=== PATIENT | male | born 1965 | race Caucasian/White ===

== ENCOUNTER 2016-05-27 09:48 | Inpatient (IN) | payer OTHER ==
[2016-05-28 05:09] LABS: HCT 32.9 % (42.0-52.0); HGB 10.3 g/dl (13.2-18.0); MCH 27.2 pg (25.0-31.0); MCHC 31.3 g/dL (32.0-36.0); MPV 11.1 fL (6.0-9.5); RBC 3.78 M/uL (4.70-6.00); RDW 13.3 % (11.5-14.0); WBC 8.9 K/uL (4.0-10.5)
[2016-05-28 05:25] LABS: CREATININE 1.1 mg/dL (0.7-1.2); POTASSIUM 4.4 mmol/L (3.5-5.1)
--- NOTE | 2016-05-28 15:51 | NUR ---
PT HAS BEEN EDUCATED ON GETTING UP AND DISCONNECTING HIMSELF FROM IV FLUIDS PT CONTINUES TO DO SO AFTER EDUCATED ON RISKS AND BENEFITS ON NONCOMPLIANCE
[2016-05-29 04:02] LABS: HCT 32.7 % (42.0-52.0); HGB 10.3 g/dl (13.2-18.0); MCH 27.2 pg (25.0-31.0); MCHC 31.5 g/dL (32.0-36.0); MCV 86.5 fL (78.0-100.0); MPV 10.5 fL (6.0-9.5); RBC 3.78 M/uL (4.70-6.00); RDW 13.5 % (11.5-14.0); WBC 11.3 K/uL (4.0-10.5)
[2016-05-29 04:28] LABS: POTASSIUM 4.1 mmol/L (3.5-5.1)
[2016-05-30 04:53] LABS: HCT 32.1 % (42.0-52.0); HGB 9.9 g/dl (13.2-18.0); MCH 26.6 pg (25.0-31.0); MCHC 30.8 g/dL (32.0-36.0); MCV 86.3 fL (78.0-100.0); MPV 10.6 fL (6.0-9.5); RBC 3.72 M/uL (4.70-6.00); RDW 13.5 % (11.5-14.0); WBC 11.3 K/uL (4.0-10.5)
[2016-05-30 08:56] LABS: TROPONIN T < 0.010 ng/mL
[2016-05-30 08:59] LABS: BILIRUBIN - TOTAL 0.4 mg/dL (0.1-1.0); CREATININE 1.1 mg/dL (0.7-1.2); GLOBULIN (CALCULATION) 2.2 g/dL (2.2-4.2); PHOSPHORUS 1.9 mg/dL (2.7-4.5); POTASSIUM 4.4 mmol/L (3.5-5.1); TOTAL PROTEIN 6.2 g/dL (6.4-8.3)
[2016-05-30 09:05] LABS: CKMB 6.59 ng/mL (0.97-4.94)
[2016-05-31 04:55] LABS: HCT 29.6 % (42.0-52.0); HGB 9.4 g/dl (13.2-18.0); MCH 27.4 pg (25.0-31.0); MCHC 31.8 g/dL (32.0-36.0); MCV 86.3 fL (78.0-100.0); MPV 10.6 fL (6.0-9.5); RBC 3.43 M/uL (4.70-6.00); RDW 13.4 % (11.5-14.0); WBC 8.1 K/uL (4.0-10.5)
[2016-05-31 05:22] LABS: CREATININE 1.1 mg/dL (0.7-1.2); POTASSIUM 3.7 mmol/L (3.5-5.1)
[2016-05-31] MEDS ORDERED: XARELTO10 MG PO (10:29)
[2016-05-31] MEDS ORDERED: PROTONIX 40MG T40 MG PO (10:55)
[2016-05-31] MEDS ORDERED: FLONASE ALLER15.8 ML (10:55)
[2016-05-31] MEDS ORDERED: CLARITIN10 MG PO (10:55)
[2016-05-31] MEDS ORDERED: LOVAZA1 GM PO (10:55)
[2016-05-31] MEDS ORDERED: BUSPIRONE HCL15 M1 PO (10:56)
[2016-05-31] MEDS ORDERED: PROZAC20 MG PO (10:56)
[2016-05-31] MEDS ORDERED: ALFUZOSIN HCL E10 MG PO (10:56)
[2016-05-31] MEDS ORDERED: PERCOCET 10/321 EACH PO (10:56)
[2016-05-31] MEDS ORDERED: ZOCOR40 MG PO (10:56)
[2016-05-31] MEDS ORDERED: FLEXERIL10 MG PO (10:57)
[2016-05-31] MEDS ORDERED: VENTOLIN HFA IN18 GM INH (10:57)
== END 2016-05-31 12:15 | disposition home health service (06) | DRG 470 ==
LOC: FMS 09:48 → FICU 05-30 07:45 → FTCU 05-30 15:50
PROVIDERS: Internal Medicine; ADMIT Orthopaedic Surgery
PROC: 8E0YXBZ Computer Assisted Procedure of Lower Extremity (ICD-10-PCS; 2016-05-27)
PROC: 0SRD0J9 Replacement of Left Knee Joint with Synthetic Substitute, Cemented, Open Approach (ICD-10-PCS; principal; 2016-05-27 07:00)
DX: M17.12 Unilateral primary osteoarthritis, left knee (principal); K25.9 Gastric ulcer, unspecified as acute or chronic, without hemorrhage or perforation; G47.33 Obstructive sleep apnea (adult) (pediatric); R00.0 Tachycardia, unspecified; K21.9 Gastro-esophageal reflux disease without esophagitis; E66.9 Obesity, unspecified; R94.31 Abnormal electrocardiogram [ECG] [EKG]; E78.5 Hyperlipidemia, unspecified; F43.10 Post-traumatic stress disorder, unspecified; F41.9 Anxiety disorder, unspecified; Q74.2 Other congenital malformations of lower limb(s), including pelvic girdle; Z91.010 Allergy to peanuts; Z68.36 Body mass index [BMI] 36.0-36.9, adult; Z79.899 Other long term (current) drug therapy; Z87.891 Personal history of nicotine dependence; Z88.8 Allergy status to other drugs, medicaments and biological substances; Z83.3 Family history of diabetes mellitus; Z82.3 Family history of stroke; Z80.9 Family history of malignant neoplasm, unspecified
CPT/HCPCS: 36415; 71275; 73560; 80048; 80053; 82550; 82553; 83735; 84100; 84484; 86850; 86900; 86901; 88305; 88311; 93005; 94010; 94640; 94660; 94762; 97110; 97116; 97162; 97166; 97530; 97530-GP; 97535; C1713; C1776; J0131; J0697; J1940; J2270; J2704; J2710; J2795; J3010; Q9967